=== PATIENT | female | born 1965 | race Caucasian/White ===

== ENCOUNTER 2023-08-17 11:54 | Outpatient (REF) | payer MEDICAID, SELFPAY ==
--- NOTE | 2023-08-17 12:00 | PAPFT_PTH ---
PATIENT: Aby Iqbal LOC: [facility] U#:[id number] AGE/SX: 58/F ROOM: RE08/17/[address]: Dar Sahu : 1965 BED: DIS: 08/17/2023 SPEC #: [id number] RECD: 08/18/23 13:24 STATUS: FARHAD REPhilip #: [id number] SAJAN: 08/17/23 12:[address]: Dar Sahu [facility]PT[facility] Cytology RECD BY: Jessica Cleary ENTERED: 08/18/23 13:24 SP TYPE: PAPFT OTHR DR: Unknown,Unknown Tissues: 1 - CX/ENDOCX FOR PAP SMEARS Procedures: PAP THIN PREP/[facility] Screening Comments: [id number]
== END 2023-08-17 11:55 | disposition home or self-care (01) ==
LOC: LBN 11:54
PROVIDERS: Visit Provider Naturopath
DX: Z12.4 Encounter for screening for malignant neoplasm of cervix (principal); Z01.419 Encounter for gynecological examination (general) (routine) without abnormal findings
CPT/HCPCS: 88142; 87624